=== PATIENT | male | born 2000 | race Caucasian/White ===

== ENCOUNTER 2024-05-28 12:50 | Emergency (ER) | payer MEDICAID, SELFPAY ==
[2024-05-28 12:51] VITALS: BP 109/86; BP 138/94; PULSE 83; PULSE 84; RESP 20; TEMP 37.1; O2SAT 97; O2SAT 99; BMI 21.8
[2024-05-28 13:03] VITALS: RESP 16
--- NOTE | 2024-05-28 13:10 | ED_ITS ---
HPI - Psych General Chief Complaint: Psychiatric Symptoms Stated Complaint: SI STATEMENT S/P AGRUING W/GF,NO LONGER SI PER EMS Time Seen by Provider: 05/28/24 12:53 History of Present Illness HPI Narrative: Patient is a 23-year-old male presented today after getting into an argument with significant other. Patient complaining of possible suicidal ideation. Patient denies any SI currently. He is unhappy about his life. He had a knife earlier and used it to cut his right index and long finger distally. Patient denies any guns in the house. He does admit to using marijuana but no other recreational drugs. Related Data Allergies Allergy/AdvReac Type Severity Reaction Status Date / Time No Known Allergies Allergy Verified 05/28/24 12:51 [No Known Allergies*] Review of Systems 2 Review of Systems: No fever no chills no chest pain or shortness of breath Yes all other systems are reviewed and are negative [facility] Past Medical History Attestation statement: The following information was validated with the patient. Social History Social History Smoked in Last 30 Days: Yes Use of substances other than those prescribed or required for medical reasons: Yes Substance Use Type: Marijuana Substance Use Frequency: Daily Advance Directives: No Advance Directives Information Provided: No Physical Exam 2 Vital Signs: Vital Signs: Last Vital Signs Temp 98.8 F 05/28/24 12:51 Pulse 83 05/28/24 12:51 Resp 16 05/28/24 13:03 BP 109/86 05/28/24 12:51 Pulse Ox 97 05/28/24 12:51 O2 Del Method Room Air 05/28/24 12:51 BMI result Body Mass Index 21.8 Appearance: Alert. Oriented X3. No acute distress. Eyes: Pupils equal, round and reactive to light. ENT: Pharynx normal. Neck: Normal inspection. Neck supple. No lymph nodes noted. No crepitus CVS: Normal heart rate and rhythm. Pulses normal. Normal S1 and S2 Respiratory: No respiratory distress. Breath sounds normal. No Wheezing. No rales Abdomen: Soft and nontender. No rigidity. No distention. good BS x4 Skin: Skin warm and dry. Normal skin color. Normal skin turgor. Very small abrasion noted to the distal right index finger and long finger. Skin not well apposed. Range of motion intact at DIP and PIP joint. Extremities: No lower extremity edema. Neurovascular intact to all extremities. No Lacerations. No Rash Neuro: Oriented X 3. No motor deficit. No sensory deficit. Moving all extermities. No slurred speech. Cranial nerves grossly intact Medical Decision Making Medical Decision Making [facility] Narrative: Patient is 23 years old had an argument with girlfriend. Now denies any suicidal homicidal ideation was evaluated by the care team. Has no weapons at home. Wants to go home. Has plan. Patient is going to stay with his girlfriend. Patient has plans for the future. He is well-appearing. Explained to patient if he had suicidal thoughts again to return. He was cleared by the care team. Will discharge patient home. Close follow-up on an outpatient basis Differential Diagnosis Differential Diagnoses: The differential diagnosis associated with the presentation includes Suicidal ideation Admission/Observation Consideration of admission/observation: Escalation of care including admission/observation considered Considered admission observation Lab Data [facility] Lab Attestation statement: I reviewed the patient's lab results. 05/28/24 13:36 05/28/24 13:36 Labs: Lab Results 05/28/24 05/28/24 Range/Units 13:36 14:08 WBC 3.4 L (4.8-10.8) X10*3/uL RBC 4.84 (4.60-5.80) X10*6/uL Hgb 15.5 (14.0-18.0) g/dl Hct 44.0 (42.0-52.0) % MCV 90.9 (80.0-98.0) fL MCH 32.0 (27.0-33.0) pg MCHC 35.2 (31.0-36.0) g/dl RDW 11.9 (11.0-16.0) % Plt Count 122 L (160-400) X10*3/uL MPV 10.6 (9.4-12.4) fL Immature Gran % (Auto) 0.0 (0.0-0.4) % Neut % (Auto) 53.7 (45-73) % Lymph % (Auto) 34.9 (20-40) % [place] % (Auto) 8.1 (2-11) % Eos % (Auto) 2.7 (0-4) % Baso % (Auto) 0.6 (0-2) % Lymph # (Auto) 1.2 (1.2-4.9) X10*3/uL [place] # (Auto) 0.3 (0.1-1.2) X10*3/uL Eos # (Auto) 0.1 (0.0-0.4) X10*3/uL Baso # (Auto) 0.0 (0.0-0.2) X10*3/uL Abs Immat Gran (auto) 0.00 (0.00-0.03) X10*3/uL Absolute Neuts (auto) 1.8 L (2.0-8.3) x10*3/uL Absolute Nucleated RBC 0.000 (0.0-0.012) X10*3/uL Nucleated RBC % (auto) 0.0 (0.0-0.2) /100WBC Sodium 142 (135-145) mmol/L Potassium 4.0 (3.3-5.1) mmol/L Chloride 105 (96-108) mmol/L Carbon Dioxide 25 (22-29) mmol/L Anion Gap 16 (12-20) BUN 10 (9-16) mg/dL Creatinine 0.92 (0.5-1.4) mg/dL Estim Creat Clear Calc 108.1 Estimated GFR > 60 Random Glucose 112 (60-115) mg/dL Calcium 9.3 (8.4-10.2) mg/dL Total Bilirubin 0.7 (0.0-1.0) mg/dL AST 29 (5-37) U/L ALT 17 (0-40) U/L Alkaline Phosphatase 93 (39-117) U/L Total Protein 8.1 H (6.5-8.0) g/dL Albumin 4.5 (3.5-5.0) g/dL Urine Color Dark Yellow Urine Appearance Cloudy Urine pH 5.5 (5.0-9.0) Ur Specific [place] 1.025 (1.005-1.025) Urine Protein Trace (Neg-Trace) mg/dL Urine Glucose (UA) Negative (Negative) mg/dL Urine Ketones 15 (Negative) mg/dL Urine Blood Negative (Negative) Urine Nitrite Negative (Negative) Ur Leukocyte Esterase Small (1+) H (Negative) Urine RBC 0-2 (0-2) /HPF Urine WBC 11-20 H (0-5) /HPF Ur Squamous Epith Cells 3-5 (0-2) /HPF Urine Bacteria None Seen (None Seen) Hyaline Casts 0-2 (0-2) /LPF Urine Opiates Screen Not Detected (Not Detect) Ur Buprenorphine Scrn Not Detected (Not Detect) ng/mL Ur Oxycodone Screen Not Detected (Not Detect) ng/mL Urine Methadone Screen Not Detected (Not Detect) ng/mL Urine Fentanyl Screen Not Detected (Not Detect) Ur Barbiturates Screen Not Detected (Not Detect) Ur Phencyclidine Scrn Not Detected (Not Detect) Ur Amphetamines Screen Not Detected (Not Detect) U Benzodiazepines Scrn Not Detected (Not Detect) Urine Cocaine Screen Not Detected (Not Detect) U Marijuana (THC) Screen POSITIVE H (Not Detect) Ethyl Alcohol < 10 mg/dL Social Determinants Patient?s care significantly limited by Social Determinants of Health including: Inadequate housing, Alcoholism and drug addiction in family, Problems related to primary support group, Unemployment and Problems related to employment Discharge Plan Discharge Clinical Impression: Depression Patient Disposition: Home, Self-Care Instructions: Depression (DC), Suicide Prevention (ED) Referrals: [place] [Physician] - (Please follow-up as per care team) Interventions: Newborn-Suicide Risk Severity Scale Last Done: 05/28/24 13:05 Print Language: Vietnamese
--- NOTE | 2024-05-28 13:13 | PC.NURSE ---
Dany comes to the ED today after having an argument with his girlfriend. He apparently made SI statements and then called 911 to talk to someone. Once the EMS crew showed up, they called PD and the patient became upset. Pt originally refused to come to the hospital but pt was agreeable after speaking with PD for a period of time. Patient was frustrated upon arrival, refusing to change lead however patient did agree and is now pacing in the pod
[2024-05-28 13:40] LABS: MANUAL DIFF FLAG NO
[2024-05-28 13:44] LABS: Basophils Percent Auto 0.6 % (0-2); Eosinophils Absolute Auto 0.1 X10*3/uL (0.0-0.4); Eosinophils Percent Auto 2.7 % (0-4); Hemoglobin 15.5 g/dl (14.0-18.0); Lymphocytes Absolute Auto 1.2 X10*3/uL (1.2-4.9); Lymphocytes Percent Auto 34.9 % (20-40); Mean Corpuscular HGB Conc 35.2 g/dl (31.0-36.0); Mean Corpuscular Volume 90.9 fL (80.0-98.0); Mean Platelet Volume 10.6 fL (9.4-12.4); Monocytes Absolute Auto 0.3 X10*3/uL (0.1-1.2); Monocytes Percent Auto 8.1 % (2-11); Neutrophils Absolute Auto 1.8 x10*3/uL (2.0-8.3); Neutrophils Percent Auto 53.7 % (45-73); Platelet Count 122 X10*3/uL (160-400); Red Blood Count 4.84 X10*6/uL (4.60-5.80); Red Cell Distribution Width 11.9 % (11.0-16.0); White Blood Count 3.4 X10*3/uL (4.8-10.8)
[2024-05-28 14:07] LABS: Alanine Aminotransferase 17 U/L (0-40); Albumin Level 4.5 g/dL (3.5-5.0); Alkaline Phosphatase 93 U/L (39-117); Anion Gap 16 (12-20); Aspartate Amino Transferase 29 U/L (5-37); Bilirubin Total 0.7 mg/dL (0.0-1.0); Blood Urea Nitrogen 10 mg/dL (9-16); Calcium 9.3 mg/dL (8.4-10.2); Carbon Dioxide 25 mmol/L (22-29); Chloride 105 mmol/L (96-108); Creatinine Clr Calc Pharmacy 108.1; Estimated Glomerular Filt Rate > 60; Ethanol < 10 mg/dL; Glucose Random 112 mg/dL (60-115); Sodium 142 mmol/L (135-145); Total Protein 8.1 g/dL (6.5-8.0)
[2024-05-28 14:20] LABS: Appearance Urine Cloudy; Color Urine Dark Yellow; Glucose Urine UA Negative (Negative); Leukocyte Esterase Urine Small (1+) (Negative); Nitrite Urine Negative (Negative); PH 5.5 (5.0-9.0); Specific Gravity - Urine 1.025 (1.005-1.025); UMIC TRIGGER UACC YES; Urine Blood Negative (Negative); Urine Ketones 15 mg/dL (Negative); Urine Protein Trace mg/dL (Neg-Trace)
[2024-05-28 14:22] LABS: Bacteria Urine None Seen (None Seen); Hyaline Casts Urine 0-2 /LPF (0-2); RBC Urine 0-2 /HPF (0-2); UACC Culture Trigger YES
[2024-05-28 14:29] LABS: Amphetamine Screen Urine Not Detected (Not Detect); Barbiturates, Urine Not Detected (Not Detect); Benzodiazepines Screen Urine Not Detected (Not Detect); Buprenorphine Scr Not Detected (Not Detect); Cannabinoid Screen Urine POSITIVE (Not Detect); Cocaine Screen Urine Not Detected (Not Detect); Fentanyl, urine Not Detected (Not Detect); Methadone Screen, Urine Not Detected (Not Detect); Opiate Screen Urine Not Detected (Not Detect); Oxycodone Screen Urine Not Detected (Not Detect); Phencyclidine Screen Urine Not Detected (Not Detect)
[2024-05-28 19:07] VITALS: BP 130/78; PULSE 85; RESP 16; TEMP 36.3; O2SAT 100
== END 2024-05-28 19:09 | disposition home or self-care (01) ==
PROVIDERS: Emergency Provider Emergency Medicine Emergency Medical Services
DX: F32.A Depression, unspecified (principal); R45.851 Suicidal ideations; F12.90 Cannabis use, unspecified, uncomplicated
CPT/HCPCS: 36415; 80053; 80307; 81001; 85025; 87086; 99284; 99285; S9485